=== PATIENT | female | born 1960 | race Caucasian/White ===

== ENCOUNTER 2017-11-16 10:22 | Day surgery (SDC) | payer MEDICAID ==
[2017-11-16] MEDS ORDERED: D5 LR 1000 ML 1,000 ML IV ONE (10:29)
[2017-11-16] MEDS ORDERED: DIPRIVAN VIAL 20 ML ONE (11:59)
[2017-11-16] MEDS ORDERED: DIPRIVAN VIAL 10 ML ONE (12:10)
[2017-11-16 12:48] VITALS: BP 133/82
== END 2017-11-16 12:55 | disposition home or self-care (01) ==
LOC: SURG1 10:22
PROVIDERS: ATTEND Internal Medicine Gastroenterology
PROC: 0DBE8ZX Excision of Large Intestine, Via Natural or Artificial Opening Endoscopic, Diagnostic (ICD-10-PCS; principal; 2017-11-16 13:30)
PROC: 0DJD8ZZ Inspection of Lower Intestinal Tract, Via Natural or Artificial Opening Endoscopic (ICD-10-PCS; principal; 2017-11-16 13:30)
DX: R19.4 Change in bowel habit (principal); R10.31 Right lower quadrant pain; R10.32 Left lower quadrant pain; Z85.038 Personal history of other malignant neoplasm of large intestine; Z98.890 Other specified postprocedural states; K63.3 Ulcer of intestine; K57.30 Diverticulosis of large intestine without perforation or abscess without bleeding; K64.0 First degree hemorrhoids
CPT/HCPCS: A4217; J3490; J7120

== ENCOUNTER 2017-12-14 10:47 | Day surgery (SDC) | payer MEDICAID ==
[2017-12-14] MEDS ORDERED: D5 LR 1000 ML 1,000 ML IV ONE (11:07)
[2017-12-14] MEDS ORDERED: DIPRIVAN VIAL 20 ML ONE (12:37)
[2017-12-14 15:48] VITALS: BP 132/80
== END 2017-12-14 13:15 | disposition home or self-care (01) ==
LOC: SURG1 10:47
PROVIDERS: ATTEND Internal Medicine Gastroenterology
PROC: 0DJ08ZZ Inspection of Upper Intestinal Tract, Via Natural or Artificial Opening Endoscopic (ICD-10-PCS; principal; 2017-12-14 15:30)
PROC: 0DB68ZX Excision of Stomach, Via Natural or Artificial Opening Endoscopic, Diagnostic (ICD-10-PCS; principal; 2017-12-14 15:30)
PROC: 0D757ZZ Dilation of Esophagus, Via Natural or Artificial Opening (ICD-10-PCS; principal; 2017-12-14 15:30)
DX: R13.19 Other dysphagia (principal); R10.13 Epigastric pain; R11.0 Nausea; K21.9 Gastro-esophageal reflux disease without esophagitis; Z85.038 Personal history of other malignant neoplasm of large intestine; Z85.818 Personal history of malignant neoplasm of other sites of lip, oral cavity, and pharynx; K20.8 Other esophagitis; K22.2 Esophageal obstruction; K22.4 Dyskinesia of esophagus; K29.60 Other gastritis without bleeding
CPT/HCPCS: A4217; J3490; J7120